=== PATIENT | male | born 1985 | race African-American/Black ===

== ENCOUNTER 2016-11-11 00:51 | Emergency (ER) | payer OTHER ==
[~2016-11-11] VITALS: Ht 167.6 cm; Wt 97.6 kg
[~2016-11-11 00:51] MED LIST: ALBUTEROL INHALER; ATARAX,VISTARIL25 MG PO; KENALOG,ARISTOC80 G1 TP; SEROQUEL100 MG PO; VENTOLIN HFA18 GM IH; WELL; ZOFRAN4 MG PO
[2016-11-11 00:56] VITALS: BP 138/78
== END 2016-11-11 02:08 | disposition left against medical advice (07) ==
LOC: EME 00:51
DX: H92.02 Otalgia, left ear (principal); Z53.21 Procedure and treatment not carried out due to patient leaving prior to being seen by health care provider